=== PATIENT | male | born 1990 | race Caucasian/White ===

== ENCOUNTER 2021-05-25 17:14 | Emergency (ER) | payer MEDICAID ==
[~2021-05-25] VITALS: Ht 188 cm; Wt 108.9 kg
[2021-05-25 17:30] VITALS: BP 149/80
--- NOTE | 2021-05-25 17:34 | NUR ---
PT TO AWAIT IN LOBBY
--- NOTE | 2021-05-25 17:39 | NUR ---
PT TAKEN TO XRAY VIA W/C
--- NOTE | 2021-05-25 17:48 | NUR ---
PT RETURNED TO LOBBY
--- NOTE | 2021-05-25 18:34 | NUR ---
31/M presents to ED with c/o right ankle pain. Patient states he "fell down a step" one month ago and "broke his leg." States he was not seen for it, reporting "I thought it would be ok" admits to taking "heroin, Tylenol, Excedrin, and Motrin for pain" with no relief. Reports 10/10 sharp constant pain that worsens when attempting to ambulate, states he is currently using a cane to ambulate but can only take a few steps at a time.
[2021-05-25] MEDS ORDERED: PROPOFOL 200 MG/20 ML VIAL IV ONE (19:10)
--- NOTE | 2021-05-25 19:13 | NUR ---
Pt report given to Maisha. Transfer of care at this time.
--- NOTE | 2021-05-25 19:13 | NUR ---
Received report from NICOLA Hooks for continuity of care
--- NOTE | 2021-05-25 19:38 | NUR ---
PATIENT SIGNED CONSENT FOR CONSCIOUS SEDATION FOR CLOSED REDUCTION OF RIGHT ANKLE. ERMD EXPLAINED BENEFITS AND RISKS.
--- NOTE | 2021-05-25 21:05 | NUR ---
TIME OUT CALLED BY DAVID SAID. PROCEDURE OF CLOSED REDUCTION OF RIGHT ANKLE. PATIENT PLACED ON [employer]. RT AT BEDSIDE GIVEN 2L OF O2 VIA NC. VSS. DAVID ADMINISTERED PROPOFOL 200MG IV PUSH.
--- NOTE | 2021-05-25 21:15 | NUR ---
ASSISTED DR WITH CONSCIOUS SEDATION PROCEDURE, APPLIED POSTERIOR SHORT LEG SPLINT WITH SUGARTONG, WRAPPED WITH ANH WRAP. +CSM
--- NOTE | 2021-05-25 21:20 | NUR ---
PATIENT DISCHARGED SCORE AT 14. SEE MODERATE SEDATION RECORD FOR FURTHER DETAILS. VSS.
[2021-05-25] MEDS ORDERED: IBUP-2213 PO (22:18)
[2021-05-25] MEDS ORDERED: ACET-2619 PO (22:18)
[2021-05-25 22:35] VITALS: BP 132/85
--- NOTE | 2021-05-25 22:35 | NUR ---
Patient discharged with v/s stable. Written and verbal after care instructions given and explained. Patient alert, oriented and verbalized understanding of instructions. Ambulatory with steady gait. All questions addressed prior to discharge. ID band removed. Patient advised to follow up with PMD. Rx of tylenol and ibuprofen given. Patient educated on indication of medication including possible reaction and side effects. Opportunity to ask questions provided and answered.
--- NOTE | 2021-05-28 19:56 | NUR ---
LATE ENTRY- PROPOFOL IVP DISCONTINUED AT 210
== END 2021-05-25 22:35 | disposition home or self-care (01) ==
LOC: MED 17:14
DX: S82.851A Displaced trimalleolar fracture of right lower leg, initial encounter for closed fracture (principal); F41.9 Anxiety disorder, unspecified; X37.1XXA Tornado, initial encounter; Y93.89 Activity, other specified; Y92.89 Other specified places as the place of occurrence of the external cause; Y99.8 Other external cause status
CPT/HCPCS: 27760; 73600; 73610; 99152; 99285; J2704